=== PATIENT | female | born 1975 | race Two or more races ===

== ENCOUNTER 2022-09-10 19:30 | Emergency (ER) | payer OTHER ==
[~2022-09-10] VITALS: Ht 167.6 cm; Wt 71.5 kg
[2022-09-10 19:43] VITALS: BP 156/84
[2022-09-10] MEDS ORDERED: KETOROLAC TROMETHAMINE 30 MG/ML VIAL IM ONE (23:00)
[2022-09-10] MEDS ORDERED: CLINDAMYCIN HCL 150 MG CAPSULE PO ONE (23:00)
[2022-09-11] MEDS ORDERED: CLIN-142 PO (02:21)
[2022-09-11] MEDS ORDERED: TRAM-559 PO (02:21)
== END 2022-09-11 03:31 | disposition home or self-care (01) ==
LOC: EMS 19:30
DX: L03.031 Cellulitis of right toe (principal); E11.9 Type 2 diabetes mellitus without complications; F17.210 Nicotine dependence, cigarettes, uncomplicated
CPT/HCPCS: 99283; 73630; 96372; J1885